=== PATIENT | female | born 1945 | race Caucasian/White ===

== ENCOUNTER → 2017-10-09 | Outpatient (CLI) | payer MEDICARE ==
[~2017-10-09] MED LIST: ASPI81CH PO; IBUP800 PO; LANS30EC PO; Multiple Vitam1 EAC1 PO; PRAV20 PO; ZOLP10 PO; ZYRTEC10 M2 PO
== END | disposition home or self-care (01) ==
LOC: LAB SHORT 08:36 → PLD 08:36
DX: D22.5 Melanocytic nevi of trunk (principal); L57.0 Actinic keratosis
CPT/HCPCS: 88305

== ENCOUNTER → 2017-12-13 | Outpatient (CLI) | payer MEDICARE ==
[2017-12-13 12:02] LABS: Source, Urine Clean Catch
[2017-12-13 13:10] LABS: Bilirubin, Urine Neg (Neg); Blood, Urine Neg (Neg); Glucose Qualitative, Urine Neg (Neg); Ketones, Urine Neg (Neg); Leukocyte Esterase, Urine Neg (Neg); Nitrite, Urine Neg (Neg); Protein, Urine Neg (Neg); Specific Gravity, Urine 1.005 (1.003-1.022); Urobilinogen, Urine NORM (Normal)
[2017-12-13 13:22] LABS: Appearance, Urine Clear (Clear); Color, Urine Yellow (P-Yellow)
== END | disposition home or self-care (01) ==
LOC: LAB 11:26 → LAB SHORT 11:26
PROVIDERS: Obstetrics & Gynecology
DX: R32 Unspecified urinary incontinence (principal)
CPT/HCPCS: 81003

== ENCOUNTER 2018-01-25 07:56 | Day surgery (SDC) | payer MEDICARE ==
[~2018-01-25] VITALS: Ht 162.6 cm; Wt 73.0 kg
[~2018-01-25 07:56] MED LIST changes: +CETI5 PO; +CHOL10002 PO; +Hair, Skin & N1 EACH PO
== END 2018-01-25 22:48 | disposition home or self-care (01) ==
LOC: ORSCMMR 07:56 → ORD 10:00 → ORSCMMR 22:48
PROVIDERS: Obstetrics & Gynecology
PROC: 0TSD0ZZ Reposition Urethra, Open Approach (ICD-10-PCS; principal; 2018-01-25 10:00)
DX: N39.3 Stress incontinence (female) (male) (principal); Z79.899 Other long term (current) drug therapy; K21.9 Gastro-esophageal reflux disease without esophagitis; E78.5 Hyperlipidemia, unspecified
CPT/HCPCS: C1771; J0330; J1100; J1956; J2250; J2405; J2710; J3010; J7120